=== PATIENT | female | born 1950 | race Caucasian/White ===

== ENCOUNTER → 2023-05-20 16:13 | Outpatient (REF) | payer SELFPAY | LOC: RAD 16:13 | PROVIDERS: ATTENDING PHYSICIAN Internal Medicine Cardiovascular Disease; FAMILY PHYSICIAN Family Medicine | DX: R94.31 Abnormal electrocardiogram [ECG] [EKG] (principal); I49.3 Ventricular premature depolarization; E78.00 Pure hypercholesterolemia, unspecified; R00.2 Palpitations | CPT/HCPCS: 75571 ==

== ENCOUNTER → 2024-03-06 09:53 | Outpatient (REF) | payer MEDICARE, OTHER, SELFPAY | LOC: MRI 3T 09:53 | PROVIDERS: ATTENDING PHYSICIAN Podiatrist; FAMILY PHYSICIAN Family Medicine | DX: M84.372A Stress fracture, left ankle, initial encounter for fracture (principal) | CPT/HCPCS: 73721 ==